=== PATIENT | male | born 1980 | race Caucasian/White ===

== ENCOUNTER 2017-11-22 19:08 | Inpatient (IN) | payer OTHER ==
[~2017-11-22] VITALS: Ht 170.2 cm; Wt 81.6 kg
[~2017-11-22 19:08] MED LIST: ANTIOXIDANT PO; TRAM1TAB98
== END 2017-12-01 14:28 | disposition home or self-care (01) | DRG 872 ==
LOC: ER 19:08 → SEC-K 20:29 → SURH 20:29
PROC: 8E0ZXY6 Isolation (ICD-10-PCS; 2017-11-22)
PROC: 02HV33Z Insertion of Infusion Device into Superior Vena Cava, Percutaneous Approach (ICD-10-PCS; principal; 2017-11-26)
DX: A41.9 Sepsis, unspecified organism (principal); K63.2 Fistula of intestine; L03.311 Cellulitis of abdominal wall; L02.211 Cutaneous abscess of abdominal wall; C49.4 Malignant neoplasm of connective and soft tissue of abdomen; C78.7 Secondary malignant neoplasm of liver and intrahepatic bile duct; N39.0 Urinary tract infection, site not specified; I10 Essential (primary) hypertension; E86.0 Dehydration; E87.6 Hypokalemia; E66.8 Other obesity

== ENCOUNTER 2017-12-18 07:23 | Inpatient (IN) | payer OTHER ==
[~2017-12-18] VITALS: Ht 170.2 cm; Wt 81.6 kg
[2017-12-18] MEDS ORDERED: ULTRACET (08:14)
== END 2017-12-20 17:55 | disposition home or self-care (01) | DRG 501 ==
LOC: ER 07:23 → SEC-K 08:29 → SURH 08:29 → SEC-K 10:08 → O/R 14:49 → SURH 14:51
PROVIDERS: Colon & Rectal Surgery
PROC: 8E0ZXY6 Isolation (ICD-10-PCS; 2017-12-18)
PROC: 0WBF0ZZ Excision of Abdominal Wall, Open Approach (ICD-10-PCS; principal; 2017-12-18 13:00)
DX: D21.4 Benign neoplasm of connective and other soft tissue of abdomen (principal); K63.2 Fistula of intestine; L02.211 Cutaneous abscess of abdominal wall; I10 Essential (primary) hypertension; E66.8 Other obesity

== ENCOUNTER 2018-03-02 11:20 | Outpatient (CLI) | payer OTHER ==
[~2018-03-02 11:20] MED LIST changes: +ULTRACET
== END 2018-03-02 15:59 | disposition home or self-care (01) ==
LOC: EKG 11:20
DX: R19.00 Intra-abdominal and pelvic swelling, mass and lump, unspecified site (principal); Z01.818 Encounter for other preprocedural examination

== ENCOUNTER 2018-03-02 12:12 | Outpatient (CLI) | payer OTHER | END 2018-03-02 13:53 | disposition home or self-care (01) | LOC: RAD 12:12 | DX: R19.00 Intra-abdominal and pelvic swelling, mass and lump, unspecified site (principal); Z01.818 Encounter for other preprocedural examination ==

== ENCOUNTER 2018-03-10 19:36 | Emergency (ER) | payer OTHER ==
[~2018-03-10] VITALS: Ht 170.2 cm; Wt 81.6 kg
== END 2018-03-11 00:29 | disposition home or self-care (01) ==
LOC: ER 19:36
DX: L02.211 Cutaneous abscess of abdominal wall (principal); C22.9 Malignant neoplasm of liver, not specified as primary or secondary

== ENCOUNTER 2018-04-04 19:02 | Inpatient (IN) | payer OTHER ==
[~2018-04-04] VITALS: Ht 170.2 cm; Wt 81.6 kg
== END 2018-04-07 18:03 | disposition home or self-care (01) | DRG 378 ==
LOC: ER 19:02 → SURH 19:31
PROC: 8E0ZXY6 Isolation (ICD-10-PCS; 2018-04-04)
PROC: BW25Y0Z Computerized Tomography (CT Scan) of Chest, Abdomen and Pelvis using Other Contrast, Unenhanced and Enhanced (ICD-10-PCS; principal; 2018-04-07)
DX: K92.2 Gastrointestinal hemorrhage, unspecified (principal); C7B.02 Secondary carcinoid tumors of liver; C49.4 Malignant neoplasm of connective and soft tissue of abdomen; K63.2 Fistula of intestine; L02.211 Cutaneous abscess of abdominal wall; Z92.21 Personal history of antineoplastic chemotherapy; E66.8 Other obesity; E86.0 Dehydration; I10 Essential (primary) hypertension; D50.0 Iron deficiency anemia secondary to blood loss (chronic); E87.6 Hypokalemia

== ENCOUNTER 2018-05-07 14:35 | Inpatient (IN) | payer OTHER ==
[~2018-05-07] VITALS: Ht 170.2 cm; Wt 82.1 kg
[2018-05-07] MEDS ORDERED: FLAGYL500MG (15:00)
[2018-05-07] MEDS ORDERED: CIPRO500 MG (15:00)
== END 2018-05-13 15:51 | disposition home or self-care (01) | DRG 580 ==
LOC: ER 14:35 → SURG 19:19 → SURH 19:19 → SEC-K 19:19 → SURG 21:49 → SURH 05-12 17:04
PROVIDERS: Colon & Rectal Surgery
PROC: 8E0ZXY6 Isolation (ICD-10-PCS; 2018-05-07)
PROC: 05H633Z Insertion of Infusion Device into Left Subclavian Vein, Percutaneous Approach (ICD-10-PCS; 2018-05-10)
PROC: 0WB Anatomical Regions, General, Excision (ICD-10-PCS; principal; 2018-05-12 15:00)
DX: L02.211 Cutaneous abscess of abdominal wall (principal); K63.2 Fistula of intestine; C78.7 Secondary malignant neoplasm of liver and intrahepatic bile duct; K92.2 Gastrointestinal hemorrhage, unspecified; C49.4 Malignant neoplasm of connective and soft tissue of abdomen; L03.311 Cellulitis of abdominal wall; E66.8 Other obesity; I10 Essential (primary) hypertension; D63.0 Anemia in neoplastic disease; B95.2 Enterococcus as the cause of diseases classified elsewhere; B96.3 Hemophilus influenzae [H. influenzae] as the cause of diseases classified elsewhere; E87.6 Hypokalemia

== ENCOUNTER 2018-05-19 04:52 | Inpatient (IN) | payer OTHER ==
[~2018-05-19] VITALS: Ht 170.2 cm; Wt 81.6 kg
[~2018-05-19 04:52] MED LIST changes: +CIPRO500 MG; +FLAGYL500MG
[2018-05-19] MEDS ORDERED: AMOX1TAB5 (04:56)
== END 2018-05-22 19:27 | disposition home or self-care (01) | DRG 389 ==
LOC: ER 04:52 → SEC-K 08:35 → MEDI 05-20 17:33 → SEC-K 05-20 17:43 → MEDJ 05-21 12:06
PROC: 8E0ZXY6 Isolation (ICD-10-PCS; principal; 2018-05-19)
DX: K56.690 Other partial intestinal obstruction (principal); N17.8 Other acute kidney failure; K63.2 Fistula of intestine; C78.7 Secondary malignant neoplasm of liver and intrahepatic bile duct; C49.4 Malignant neoplasm of connective and soft tissue of abdomen; E86.0 Dehydration; E66.8 Other obesity; E87.6 Hypokalemia; E88.09 Other disorders of plasma-protein metabolism, not elsewhere classified; D63.0 Anemia in neoplastic disease; I10 Essential (primary) hypertension

== ENCOUNTER 2018-07-07 05:40 | Inpatient (IN) | payer OTHER ==
[~2018-07-07] VITALS: Ht 170.2 cm; Wt 77.1 kg
[~2018-07-07 05:40] MED LIST changes: +AMOX1TAB5
--- NOTE | 2018-07-07 06:17 | NUR ---
PACIENTE ALERTA Y ORIENTADO X3. REFIERE VENIR PORQUE DESDE LAS 3:30AM DE HOY ESTA PRESENTANDO DOLOR EN FLANCO L+, HOMBRO L+, PECHO Y DIFICULTAD PARA RESPIRAR. PACIENTE REFIERE HACE UN MES LE REALIZARON JOELLEN FISTULA POR DRA. NGOZI COLÓN. SE OBSERVA HERIDA CICATRIZANDO DARA SUPURANDO EN ABDOMEN. SE REALIZA EKG Y SE PRESENTA A DR. URIBE. SE UBICA EN MARYLOU #[id number] PARA EVALUACION MEDICA.
--- NOTE | 2018-07-07 08:19 | NUR ---
PACIENTE ALERTRA Y ORIENTADA POR PHYLLIS ESFERAS. SE ORIENTA A PACIENTE SOBRE PROCEDIMIENTO Y TX, REFIERE ENTENDER. SE EXTRAE MUESTRAS DE LABORATORIO CON MEDIDAS ASEPTICAS Y SE ADMINISTRA MEDICAMENTOS SHARMILA ORDEN MEDICA. SE ORIENTA A PACIENTE SOBRE CONTRASTE PARA CT ABD/PELV.
--- NOTE | 2018-07-07 11:14 | NUR ---
PACIENTE AL MOMENTO DE LEVANTARSE DE LA CAMA COMIENZA A DRENAR SECRECIONES EN UN ORIFICIO QUE CREO AL MOMENTO DE LEVANTAR. SE LE [facility] Y SE COLOCA ABODIMIAL PADS.
--- NOTE | 2018-07-07 11:36 | NUR ---
SE NOTIFICA A MS. KHUSHBU ALVAREZ'S PENDIENTE.
== END 2018-09-01 19:12 | disposition home or self-care (01) | DRG 344 ==
LOC: ER 05:40 → O/R 13:36 → SURH 13:36 → O/R 07-09 16:15 → MEDI 07-09 18:57 → SURH 07-09 18:57
PROVIDERS: Colon & Rectal Surgery; ADMIT Colon & Rectal Surgery
PROC: 0W9G0ZX Drainage of Peritoneal Cavity, Open Approach, Diagnostic (ICD-10-PCS; 2018-07-07)
PROC: 0WPF0JZ Removal of Synthetic Substitute from Abdominal Wall, Open Approach (ICD-10-PCS; 2018-07-07)
PROC: 2W13X6Z Compression of Abdominal Wall using Pressure Dressing (ICD-10-PCS; 2018-07-07)
PROC: 5A1945Z Respiratory Ventilation, 24-96 Consecutive Hours (ICD-10-PCS; 2018-07-07)
PROC: 0BH17EZ Insertion of Endotracheal Airway into Trachea, Via Natural or Artificial Opening (ICD-10-PCS; 2018-07-07)
PROC: 4A033R1 Measurement of Arterial Saturation, Peripheral, Percutaneous Approach (ICD-10-PCS; 2018-07-07)
PROC: BW21Y0Z Computerized Tomography (CT Scan) of Abdomen and Pelvis using Other Contrast, Unenhanced and Enhanced (ICD-10-PCS; 2018-07-07)
PROC: 0D9H0ZZ Drainage of Cecum, Open Approach (ICD-10-PCS; principal; 2018-07-07 14:00)
PROC: 02HV33Z Insertion of Infusion Device into Superior Vena Cava, Percutaneous Approach (ICD-10-PCS; 2018-07-08)
PROC: 3E0436Z Introduction of Nutritional Substance into Central Vein, Percutaneous Approach (ICD-10-PCS; 2018-07-08)
PROC: 3E0F7GC Introduction of Other Therapeutic Substance into Respiratory Tract, Via Natural or Artificial Opening (ICD-10-PCS; 2018-07-09)
PROC: 4A12X4Z Monitoring of Cardiac Electrical Activity, External Approach (ICD-10-PCS; 2018-07-09)
PROC: BW24Y0Z Computerized Tomography (CT Scan) of Chest and Abdomen using Other Contrast, Unenhanced and Enhanced (ICD-10-PCS; 2018-07-14)
PROC: BW21Y0Z Computerized Tomography (CT Scan) of Abdomen and Pelvis using Other Contrast, Unenhanced and Enhanced (ICD-10-PCS; 2018-07-23)
PROC: 0W9G30Z Drainage of Peritoneal Cavity with Drainage Device, Percutaneous Approach (ICD-10-PCS; 2018-07-24)
PROC: 0DB68ZX Excision of Stomach, Via Natural or Artificial Opening Endoscopic, Diagnostic (ICD-10-PCS; 2018-08-03)
PROC: BW21Y0Z Computerized Tomography (CT Scan) of Abdomen and Pelvis using Other Contrast, Unenhanced and Enhanced (ICD-10-PCS; 2018-08-03)
PROC: 8E0ZXY6 Isolation (ICD-10-PCS; 2018-08-12)
PROC: BW40ZZZ Ultrasonography of Abdomen (ICD-10-PCS; 2018-08-17)
PROC: BW21Y0Z Computerized Tomography (CT Scan) of Abdomen and Pelvis using Other Contrast, Unenhanced and Enhanced (ICD-10-PCS; 2018-08-19)
PROC: 0JD83ZZ Extraction of Abdomen Subcutaneous Tissue and Fascia, Percutaneous Approach (ICD-10-PCS; 2018-08-20)
PROC: 0W9G30Z Drainage of Peritoneal Cavity with Drainage Device, Percutaneous Approach (ICD-10-PCS; 2018-08-21)
PROC: BW25YZZ Computerized Tomography (CT Scan) of Chest, Abdomen and Pelvis using Other Contrast (ICD-10-PCS; 2018-08-27)
PROC: CT131ZZ Planar Nuclear Medicine Imaging of Kidneys, Ureters and Bladder using Technetium 99m (Tc-99m) (ICD-10-PCS; 2018-08-31)
DX: K63.1 Perforation of intestine (nontraumatic) (principal); A41.9 Sepsis, unspecified organism; J95.821 Acute postprocedural respiratory failure; K65.1 Peritoneal abscess; K63.2 Fistula of intestine; C49.4 Malignant neoplasm of connective and soft tissue of abdomen; C78.7 Secondary malignant neoplasm of liver and intrahepatic bile duct; K56.690 Other partial intestinal obstruction; J95.89 Other postprocedural complications and disorders of respiratory system, not elsewhere classified; J98.11 Atelectasis; J91.8 Pleural effusion in other conditions classified elsewhere; B37.49 Other urogenital candidiasis; T81.42XA Infection following a procedure, deep incisional surgical site, initial encounter; N17.8 Other acute kidney failure; L03.311 Cellulitis of abdominal wall; N13.39 Other hydronephrosis; A42.1 Abdominal actinomycosis; A04.72 Enterocolitis due to Clostridium difficile, not specified as recurrent; K91.840 Postprocedural hemorrhage of a digestive system organ or structure following a digestive system procedure; D63.0 Anemia in neoplastic disease; I10 Essential (primary) hypertension; E66.8 Other obesity; E86.0 Dehydration; N99.0 Postprocedural (acute) (chronic) kidney failure; K44.9 Diaphragmatic hernia without obstruction or gangrene; B96.1 Klebsiella pneumoniae [K. pneumoniae] as the cause of diseases classified elsewhere; B95.2 Enterococcus as the cause of diseases classified elsewhere; B96.7 Clostridium perfringens [C. perfringens] as the cause of diseases classified elsewhere; K29.50 Unspecified chronic gastritis without bleeding

== ENCOUNTER → 2018-09-15 | Outpatient (CLI) | payer OTHER ==
[~2018-09-15] MED LIST changes: +PNEU16DI2
== END | disposition home or self-care (01) ==
LOC: TOM 11:30
DX: F52.21 Male erectile disorder (principal); N48.6 Induration penis plastica; R10.84 Generalized abdominal pain

== ENCOUNTER 2018-09-21 12:20 | Inpatient (IN) | payer OTHER ==
[~2018-09-21] VITALS: Ht 167.6 cm; Wt 61.7 kg
[~2018-09-21 12:20] MED LIST changes: -PNEU16DI2
[2018-09-21] MEDS ORDERED: ULTRACET (12:39)
[2018-09-21] MEDS ORDERED: PNEU16DI2 (12:39)
== END 2018-09-25 19:40 | disposition home or self-care (01) | DRG 699 ==
LOC: ER 12:20 → SEC-K 15:35 → SURH 15:35
PROC: BW21ZZZ Computerized Tomography (CT Scan) of Abdomen and Pelvis (ICD-10-PCS; principal; 2018-09-22)
PROC: 02HV33Z Insertion of Infusion Device into Superior Vena Cava, Percutaneous Approach (ICD-10-PCS; 2018-09-22)
DX: N32.1 Vesicointestinal fistula (principal); N13.39 Other hydronephrosis; C49.4 Malignant neoplasm of connective and soft tissue of abdomen; C78.7 Secondary malignant neoplasm of liver and intrahepatic bile duct; N39.0 Urinary tract infection, site not specified; N20.0 Calculus of kidney; Z92.21 Personal history of antineoplastic chemotherapy

== ENCOUNTER → 2018-10-29 | Outpatient (CLI) | payer OTHER ==
[~2018-10-29] MED LIST changes: +PNEU16DI2
== END | disposition home or self-care (01) ==
LOC: NUCLEAR 07:00
DX: K63.2 Fistula of intestine (principal); R10.84 Generalized abdominal pain; C49.4 Malignant neoplasm of connective and soft tissue of abdomen; N32.1 Vesicointestinal fistula; N13.2 Hydronephrosis with renal and ureteral calculous obstruction
CPT/HCPCS: 78816; A9552

== ENCOUNTER 2018-11-17 09:34 | Outpatient (CLI) | payer OTHER | END 2018-11-17 15:00 | disposition home or self-care (01) | LOC: TOM 09:34 | DX: C49.4 Malignant neoplasm of connective and soft tissue of abdomen (principal) ==

== ENCOUNTER 2018-12-22 21:22 | Emergency (ER) | payer OTHER ==
[~2018-12-22] VITALS: Ht 170.2 cm; Wt 62.6 kg
[2018-12-23] MEDS ORDERED: KETO10TA2 PO (04:19)
[2018-12-23] MEDS ORDERED: ORPHENADRINE C100 MG PO (04:19)
== END 2018-12-23 04:20 | disposition home or self-care (01) ==
LOC: ER 21:22
DX: G89.3 Neoplasm related pain (acute) (chronic) (principal); C78.7 Secondary malignant neoplasm of liver and intrahepatic bile duct; M54.89 Other dorsalgia; F45.42 Pain disorder with related psychological factors

== ENCOUNTER 2019-01-08 14:38 | Inpatient (IN) | payer OTHER ==
[~2019-01-08] VITALS: Ht 213.4 cm; Wt 5.0 kg
[~2019-01-08 14:38] MED LIST changes: +KETO10TA2 PO; +ORPHENADRINE C100 MG PO
--- NOTE | 2019-01-08 14:47 | NUR ---
PACIENTE ALERTA,ORIENTADO EN PHYLLIS ESFERAS,AMBULANDO SIN DIFICULTAD,EN COMPANIA DE FAMILIAR. PACIENTE HEMOGLOBINA EN 8.3,CANSANCIO,DOLOR DE PECHO.CON EVOLUCION DE DG EN LA NOCHE. PACIENTE DE CANCER EN RECTO,METATISADO A HIGADO. KARLA ISRAEL. NGOZI COLÓN,INTERNISTA .DAVID TUCKER.
--- NOTE | 2019-01-08 16:41 | NUR ---
CAITLIN ORIENTA A PACIENTE SOBRE TRATAMIENTO. JOSE MUESTRAS DE LABORATORIO ORDENADAS. CANALIZA CON AREA DE VENOPUNCION CLAUS DE EDEMA O ENROJECIMIENTO. SE ROBYN TUBOS BRIGIDO Y SE MANTIENE EN OBSERVACION POR CAMBIOS.
--- NOTE | 2019-01-08 17:00 | NUR ---
SE REPORTAN TUBOS BRIGIDO A BANCO DE WILEY Y SE HABLA CON STEIDEL.
== END 2019-01-12 17:00 | disposition home or self-care (01) | DRG 812 ==
LOC: ER 14:38 → SEC-K 17:30 → SURG 17:30 → SURH 17:30 → MEDI 18:29 → SURG 19:41 → SURH 01-10 15:07
PROVIDERS: ADMIT Colon & Rectal Surgery
PROC: 30233N1 Transfusion of Nonautologous Red Blood Cells into Peripheral Vein, Percutaneous Approach (ICD-10-PCS; principal; 2019-01-09)
DX: D64.89 Other specified anemias (principal); C49.4 Malignant neoplasm of connective and soft tissue of abdomen; C78.7 Secondary malignant neoplasm of liver and intrahepatic bile duct; N39.0 Urinary tract infection, site not specified; N32.1 Vesicointestinal fistula; N13.39 Other hydronephrosis; E87.6 Hypokalemia; E83.42 Hypomagnesemia; E83.51 Hypocalcemia; D63.8 Anemia in other chronic diseases classified elsewhere; M54.2 Cervicalgia; B96.29 Other Escherichia coli [E. coli] as the cause of diseases classified elsewhere; B96.4 Proteus (mirabilis) (morganii) as the cause of diseases classified elsewhere; B96.1 Klebsiella pneumoniae [K. pneumoniae] as the cause of diseases classified elsewhere; I10 Essential (primary) hypertension; E86.0 Dehydration; M62.830 Muscle spasm of back; Z92.21 Personal history of antineoplastic chemotherapy; Z93.2 Ileostomy status

== ENCOUNTER 2019-02-11 11:21 | Outpatient (CLI) | payer OTHER | END 2019-02-11 11:23 | disposition home or self-care (01) | LOC: RAD 11:21 | DX: R22.2 Localized swelling, mass and lump, trunk (principal) ==

== ENCOUNTER 2019-03-08 08:50 | Inpatient (IN) | payer OTHER ==
[~2019-03-08] VITALS: Ht 170.2 cm; Wt 66.7 kg
[2019-03-08] MEDS ORDERED: DEXAMETHASONE1 MG PO (09:00)
--- NOTE | 2019-03-08 09:14 | NUR ---
PACIENTE CON HISTORIAL DE CANCER DE COLON METASTIZADO A HIGADO QUE REFIERE DOLOR ABDOMINAL Y ANEMIA.
--- NOTE | 2019-03-08 10:22 | NUR ---
SE ORIENTA A PT SOBRE ORDENES MEDICAS, REFIERE ENTENDER. SE COLECTAN MUESTRAS Y SE CANALIZA UTILIZANDO MEDIDAS ASEPTICAS, PT TOLERA. SE ROTULAN TUBOS BRIGIDO Y SE ENTREGAN A BANCO [place] PARA 2 UNIDADES DE PRBCS. PT EN ESPERA DE UNIDADES PARA SER TRANSFUNDIDAS.
--- NOTE | 2019-03-08 15:29 | NUR ---
SE RECIBE PTE ALERTA Y ORIENTADO X 3 ESFERAS, EN CAMA NIVEL MAS BAJO, BERNAL DE IDENTIFICACION Y BARANDAS ELEVADAS POR PRECAUCION. SE OBSERVA CON BUEN PATRON RESPIRATORIO Y PIEL TIBIA AL TACTO. IV PATENTE CON 0.9% NSS @200 ML/HR. SE LLAMA A BANCO DE [place] Y PERSONAL DE TURNO NOTIFICA WILEY SE ENCUENTRA DISPONIBLE. PTE PENDIENTE A TRANSFUNDIR 2 U DE PRBC. SE MANTIENE BAJO OBSERVACION.
--- NOTE | 2019-03-08 17:31 | NUR ---
SE COMIENZA A TRANSFUNDIR PTE A LAS 4:18PM, EL MISMO TOLERA LA MISMA. 4:48PM PTE PRESENTA EL PULSO EN 124 LATIDOS POR MINUTO. SE NOTIFICA A DR Fawn TUCKER QUIEN INDICA DISMINUIR 0.9%NSS A 50ML/HR GRETCHEN LA TRANFUSION Y CONTINUAR CON LA MISMA, SHARMILA PTE TOLERE LA MISMA. SE REALIZA DXT EL MISMO EN 102MG/DL.
--- NOTE | 2019-03-08 21:24 | NUR ---
SE CULMINA TRANSFUSION DE WILEY, PTE CON PULSO EN 124 LAT/MIN. SE NOTIFICA A DR Fawn TUCKER QUIEN INDICA CONTINUAR CON TRANSFUSION DE SAMGRE YA QUE SHARMILA INDICA DR Fawn TUCKER CALIN ES EL PULSO NORMAL DE PTE. PTE INDICA DOLOR SE NOTIFICA A DR Fawn TUCKER QUIEN ORDENA MORFINA 8MG IV ONCE. SE MANTIENE BAJO OBSERVACION.
--- NOTE | 2019-03-08 22:55 | NUR ---
SE COMIENZA A TRANSFUNDIR SEGUNDA UNIDAD DE PRBC, AL MOMENTO PTE TOLERA LA MISMA. SE MANTIENE BAJO OBSERVACION.
--- NOTE | 2019-03-08 23:52 | NUR ---
SE RECIBE MASCULINO ALERTA Y ORIENTADO POR PHYLLIS ESFERAS, EN CAMA CON BARANDAS ELEVADAS Y SEGURAS. EN COMPANIA DE FAMILIARES. BERNAL DE IDENTIFICACION PRESENTE, TIMBRE DE EMERGENCIAS PRESENTE. AREA DE VENOPUNCIONES LIBRES DE EDEMA O ENROJECIMIENTO. RECIBIENDO UNIDAD DE PRBC ORDENADA Y DRIP DE 0.9%NSS @ 50ML/HR. SE ORIENTA SOBRE TRATAMIENTO. SE MANTIENE EN OBSERVACION POR CAMBIOS.
--- NOTE | 2019-03-09 06:21 | NUR ---
SE ORIENTA PACIENTE SOBRE TRATAMIENTO MEDICO EL CUAL REFIERE ENTENDER, SE ADMNISTRA MEDICAMENTO SHARMILA ORDEN MEDICA, PACIENTE TOLERA INTERVENCION DEL RN.
--- NOTE | 2019-03-09 07:27 | NUR ---
PACIENTE ALERTA, PRESENTA BUEN PATRON RESPIRATORIO Y CLAUS DE DOLOR. CANALIZADO X 2 EN BRAZO RT PATENTE Y CLAUS DE S/S DE FLEBITIS E INFILTRACION, RECIBIENDO 0.9% NSS A 50 ML/HR. PACIENTE YA RECIBIIO 2 PRBC, HGB POST TRANSFUSION 9.5. PENDIENTE RE EVALUACION DE MEDICINA INTERNA CON DR Fawn TUCKER.
== END 2019-03-25 18:16 | disposition home or self-care (01) | DRG 811 ==
LOC: ER 08:50 → MEDJ 03-09 09:52 → SEC-K 03-09 09:52 → MEDJ 03-09 11:20
PROVIDERS: ADMIT Specialist
PROC: 8E0ZXY6 Isolation (ICD-10-PCS; principal; 2019-03-09)
PROC: 30233N1 Transfusion of Nonautologous Red Blood Cells into Peripheral Vein, Percutaneous Approach (ICD-10-PCS; 2019-03-09)
PROC: BW21ZZZ Computerized Tomography (CT Scan) of Abdomen and Pelvis (ICD-10-PCS; 2019-03-09)
PROC: B246ZZZ Ultrasonography of Right and Left Heart (ICD-10-PCS; 2019-03-10)
PROC: 02HV33Z Insertion of Infusion Device into Superior Vena Cava, Percutaneous Approach (ICD-10-PCS; 2019-03-15)
PROC: 3E0336Z Introduction of Nutritional Substance into Peripheral Vein, Percutaneous Approach (ICD-10-PCS; 2019-03-17)
DX: D64.89 Other specified anemias (principal); J96.21 Acute and chronic respiratory failure with hypoxia; A41.51 Sepsis due to Escherichia coli [E. coli]; C78.7 Secondary malignant neoplasm of liver and intrahepatic bile duct; C79.51 Secondary malignant neoplasm of bone; K63.2 Fistula of intestine; N32.1 Vesicointestinal fistula; N39.0 Urinary tract infection, site not specified; N13.39 Other hydronephrosis; E87.2 Acidosis; R65.10 Systemic inflammatory response syndrome (SIRS) of non-infectious origin without acute organ dysfunction; C79.89 Secondary malignant neoplasm of other specified sites; C78.6 Secondary malignant neoplasm of retroperitoneum and peritoneum; N17.8 Other acute kidney failure; K68.11 Postprocedural retroperitoneal abscess; R64 Cachexia; J98.11 Atelectasis; G89.3 Neoplasm related pain (acute) (chronic); G63 Polyneuropathy in diseases classified elsewhere; G58.8 Other specified mononeuropathies; Z93.2 Ileostomy status; I49.8 Other specified cardiac arrhythmias; E86.0 Dehydration; Z92.21 Personal history of antineoplastic chemotherapy; Z95.828 Presence of other vascular implants and grafts; D63.8 Anemia in other chronic diseases classified elsewhere; E66.8 Other obesity; I13.10 Hypertensive heart and chronic kidney disease without heart failure, with stage 1 through stage 4 chronic kidney disease, or unspecified chronic kidney disease; N18.9 Chronic kidney disease, unspecified; E87.6 Hypokalemia; Z16.12 Extended spectrum beta lactamase (ESBL) resistance; B96.89 Other specified bacterial agents as the cause of diseases classified elsewhere; T66.XXXA Radiation sickness, unspecified, initial encounter; B95.2 Enterococcus as the cause of diseases classified elsewhere; B96.29 Other Escherichia coli [E. coli] as the cause of diseases classified elsewhere